=== PATIENT | female | born 1945 | race Caucasian/White ===

== ENCOUNTER 2021-03-10 12:45 | Emergency (ER) | payer MEDICARE, OTHER ==
--- NOTE | 2021-03-10 13:04 | ED Cough/URI ---
General Stated Complaint: COVID+; LETHARGY; LOW O2 History of Present Illness Date Seen by Provider: Mar 10, 2021 Time Seen by Provider: 12:59 Initial Comments 75-year-old female presents with generalized malaise, some nausea vomiting not feeling well. Patient reports that she started feeling rough with some body aches on 02/28/2021. That she has gotten worse. Patient was seen by her primary care provider today and tested positive for Covid. Patient presents because she thinks she needs some IV fluids. She complains of some mild shortness of breath with concerns of low oxygen. Patient has chills but no reports of fevers. She took a Zofran around 9 AM this morning and and ibuprofen around 1030. Allergies and Home Medications Allergies Coded Allergies: No Known Drug Allergies (Unverified , 03/10/21) Patient Home Medication List Home Medication List Reviewed: Yes Review of Systems Review of Systems Constitutional: chills, malaise Respiratory: cough, short of breath Cardiovascular: No chest pain Gastrointestinal: No abdominal pain; nausea, vomiting Genitourinary: no symptoms reported Musculoskeletal: see HPI Skin: no symptoms reported Psychiatric/Neurological: No Symptoms Reported Hematologic/Lymphatic: No Symptoms Reported Physical Exam Capillary Refill : Height: '" Weight: lbs. oz. kg; BMI Method: General Appearance: mild distress Respiratory: no respiratory distress, no accessory muscle use Cardiovascular: normal peripheral pulses, regular rate, rhythm Gastrointestinal: non tender, soft Extremities: normal range of motion Neurologic/Psychiatric: alert, normal mood/affect, oriented x 3 Skin: normal color, warm/dry Progress/Results/Core Measures Suspected Sepsis SIRS Temperature: Pulse: Respiratory Rate: Laboratory Tests 03/10/21 13:20: White Blood Count 9.9 Blood Pressure / Mean: Laboratory Tests 03/10/21 13:20: Creatinine 0.86, Platelet Count 301, Total Bilirubin 0.3 Results/Orders Lab Results Laboratory Tests Test 03/10/21 13:20 Range/Units White Blood Count 9.9 4.3-11.0 10^3/uL Red Blood Count 4.50 3.80-5.11 10^6/uL Hemoglobin 12.6 11.5-16.0 g/dL Hematocrit 39 35-52 % Mean Corpuscular Volume 86 80-99 fL Mean Corpuscular Hemoglobin 28 25-34 pg Mean Corpuscular Hemoglobin Concent 33 32-36 g/dL Red Cell Distribution Width 13.6 10.0-14.5 % Platelet Count 301 130-400 10^3/uL Mean Platelet Volume 10.3 9.0-12.2 fL Immature Granulocyte % (Auto) 1 % Neutrophils (%) (Auto) 84 H 42-75 % Lymphocytes (%) (Auto) 10 L 12-44 % Monocytes (%) (Auto) 5 0-12 % Eosinophils (%) (Auto) 0 0-10 % Basophils (%) (Auto) 0 0-10 % Neutrophils # (Auto) 8.3 H 1.8-7.8 X 10^3 Lymphocytes # (Auto) 0.9 L 1.0-4.0 X 10^3 Monocytes # (Auto) 0.5 0.0-1.0 X 10^3 Eosinophils # (Auto) 0.0 0.0-0.3 10^3/uL Basophils # (Auto) 0.0 0.0-0.1 10^3/uL Immature Granulocyte # (Auto) 0.1 0.0-0.1 10^3/uL Neutrophils % (Manual) 73 % Lymphocytes % (Manual) 7 % Monocytes % (Manual) 4 % Eosinophils % (Manual) 0 % Basophils % (Manual) 0 % Metamyelocytes % 1 % Band Neutrophils 15 % Sodium Level 137 135-145 MMOL/L Potassium Level 3.6 3.6-5.0 MMOL/L Chloride Level 103 98-107 MMOL/L Carbon Dioxide Level 20 L 21-32 MMOL/L Anion Gap 14 5-14 MMOL/L Blood Urea Nitrogen 8 7-18 MG/DL Creatinine 0.86 0.60-1.30 MG/DL Estimat Glomerular Filtration Rate 65 BUN/Creatinine Ratio 9 Glucose Level 116 H 70-105 MG/DL Calcium Level 8.2 L 8.5-10.1 MG/DL Corrected Calcium 8.8 8.5-10.1 MG/DL Total Bilirubin 0.3 0.1-1.0 MG/DL Aspartate Amino Transf (AST/SGOT) 57 H 5-34 U/L Alanine Aminotransferase (ALT/SGPT) 21 0-55 U/L Alkaline Phosphatase 83 40-136 U/L Total Protein 7.1 6.4-8.2 GM/DL Albumin 3.3 3.2-4.5 GM/DL My Orders Orders - DOS SANTOS,CORRY L DO Cbc With Automated Diff (03/10/21 13:07) Comprehensive Metabolic Panel (03/10/21 13:07) Ua Culture If Indicated (03/10/21 13:07) Chest 1 View Ap/Pa Only (03/10/21 13:07) Acetaminophen Tablet (Tylenol Tablet) (03/10/21 13:07) Ondansetron Injection (Zofran Injectio (03/10/21 13:15) Famotidine Tablet (Pepcid Tablet) (03/10/21 13:07) Ns Iv 1000 Ml (Sodium Chloride 0.9%) (03/10/21 13:07) Manual Differential (03/10/21 13:20) Ct Angio Chest W (03/10/21 14:10) Iohexol Injection (Omnipaque 350 Mg/Ml 1 (03/10/21 14:15) Received Contrast (Hold Metformin- Contr (03/10/21 14:15) Sodium Chloride Flush (Catheter Flush Sy (03/10/21 14:15) Ns (Ivpb) (Sodium Chloride 0.9% Ivpb Bag (03/10/21 14:15) Medications Given in ED Current Medications Medications Dose Ordered Sig/Sahra Route Start Time Stop Time Status Last Admin Dose Admin Iohexol 100 ml ONCE ONCE IV 03/10/21 14:15 03/10/21 14:16 DC 03/10/21 14:48 100 ML Ondansetron HCl 4 mg ONCE ONCE IVP 03/10/21 13:15 03/10/21 13:16 DC 03/10/21 13:24 4 MG Sodium Chloride 10 ml NEEDED PRN IV 03/10/21 14:15 03/10/21 14:48 10 ML Sodium Chloride 100 ml ONCE ONCE IV 03/10/21 14:15 03/10/21 14:16 DC 03/10/21 14:48 100 ML Vital Signs/I&O Capillary Refill : Progress Note : Progress Note Patient's O2 saturations remained in the upper 90s throughout her stay. Patient with Covid pneumonia on x-ray and CT. At this time patient reports that she is ready to go home and that she is going to go ahead and just leave if we do not discharge her. Patient will be discharged since labs and vitals are stable. She should follow-up with her primary care provider as needed Diagnostic Imaging Diagonstic Imaging: Xray Plain Films/CT/US/NM/MRI: chest Comments Date of Exam:03/10/21 CHEST 1 VIEW AP/PA ONLY INDICATION: Cough and COVID infection. TECHNIQUE: Portable AP upright view of the chest is obtained. COMPARISON: There is no previous study for comparison. FINDINGS: Predominantly wedge-shaped airspace disease is seen in the periphery of both lungs. This is more pronounced on the left. No pneumothorax or definite pleural fluid is seen. Heart size is within normal limits. IMPRESSION: Peripheral airspace disease may represent infiltrate such as bilateral pneumonia. Given morphology, other considerations such as infarct are not excluded. Departure Impression Primary Impression: Pneumonia due to COVID-19 virus Disposition: 01 HOME, SELF-CARE Condition: Stable Departure-Patient Inst. Referrals: JORDAN DIXON MD (PCP/Family) Primary Care Physician Patient Instructions: COVID-19 ED, Recovery After COVID-19 Add. Discharge Instructions: Follow-up with your primary care provider as needed CORRY DOS SANTOS DO Mar 10, 2021 13:04
[2021-03-10] MEDS ORDERED: FAMOTIDINE 20 MG (PEPCID) TABLET PO STA (13:07)
[2021-03-10] MEDS ORDERED: ACETAMINOPHEN 500 MG TAB (TYLENOL) PO STA (13:07)
[2021-03-10] MEDS ORDERED: NS IV 1000 ML 1,000 ML IV STA (13:07)
[2021-03-10] MEDS ORDERED: ONDANSETRON 4 MG/2 ML (SDV) Z0FRAN IVP ONE (13:15)
--- NOTE | 2021-03-10 13:35 | Diagnostic Imaging Report ---
INDICATION: Cough and COVID infection. TECHNIQUE: Portable AP upright view of the chest is obtained. COMPARISON: There is no previous study for comparison. FINDINGS: Predominantly wedge-shaped airspace disease is seen in the periphery of both lungs. This is more pronounced on the left. No pneumothorax or definite pleural fluid is seen. Heart size is within normal limits. IMPRESSION: Peripheral airspace disease may represent infiltrate such as bilateral pneumonia. Given morphology, other considerations such as infarct are not excluded. Dictated by: Dictated on workstation # [id number]
[2021-03-10 13:37] LABS: BASOPHILS % (AUTO) 0 % (0-10); EOSINOPHILS % (AUTO) 0 % (0-10); HEMATOCRIT 39 % (35-52); HEMOGLOBIN 12.6 g/dL (11.5-16.0); LYMPHOCYTES % (AUTO) 10 % (12-44); MEAN CORPUSCULAR HEMOGLOBIN 28 pg (25-34); MEAN CORPUSCULAR HGB CONC 33 g/dL (32-36); MEAN CORPUSCULAR VOLUME 86 fL (80-99); MEAN PLATELET VOLUME 10.3 fL (9.0-12.2); MONOCYTES % (AUTO) 5 % (0-12); NEUTROPHILS % (AUTO) 84 % (42-75); PLATELET COUNT 301 10^3/uL (130-400); WHITE BLOOD COUNT 9.9 10^3/uL (4.3-11.0)
[2021-03-10 13:38] LABS: LYMPHOCYTES # (AUTO) 0.9 X 10^3 (1.0-4.0); MONOCYTES # (AUTO) 0.5 X 10^3 (0.0-1.0); NEUTROPHILS # (AUTO) 8.3 X 10^3 (1.8-7.8)
[2021-03-10 14:02] LABS: ALBUMIN 3.3 GM/DL (3.2-4.5); BILIRUBIN,TOTAL 0.3 MG/DL (0.1-1.0); CALCIUM 8.2 MG/DL (8.5-10.1); CREATININE SERUM 0.86 MG/DL (0.60-1.30); POTASSIUM 3.6 MMOL/L (3.6-5.0); TOTAL PROTEIN 7.1 GM/DL (6.4-8.2)
[2021-03-10 14:03] LABS: BAND NEUTROPHILS 15 %; LYMPHOCYTES % (MANUAL) 7 %; NEUTROPHILS % (MANUAL) 73 %
[2021-03-10 14:04] LABS: BASOPHILS % (MANUAL) 0 %; EOSINOPHILS % (MANUAL) 0 %; METAMYELOCYTES % 1 %; MONOCYTES % (MANUAL) 4 %
[2021-03-10] MEDS ORDERED: CATHETER FLUSH 10 ML SYR IV PRN (14:15)
[2021-03-10] MEDS ORDERED: HOLD METFORMIN - RECEIVED CONTRAST 20 ML VIAL IV SCH (14:15)
[2021-03-10] MEDS ORDERED: NS 100 ML (IVPB) BAG IV ONE (14:15)
[2021-03-10] MEDS ORDERED: IOHEXOL 350 MG/ML 100 ML (OMNIPAQUE 350) VIAL IV ONE (14:15)
--- NOTE | 2021-03-10 14:58 | Diagnostic Imaging Report ---
PROCEDURE: CT angiography Chest TECHNIQUE: After intravenous administration of contrast, thin section axial CT angiography of the chest was performed. 3D MIP reconstructions were made. All CT scans use one or more of the following dose optimizing techniques: automated exposure control, MA and/or KvP adjustment based on a patient size and exam type, or iterative reconstruction. INDICATION: Shortness of breath. Covid positive. COMPARISON: Chest radiograph from earlier same day FINDINGS: Vasculature: No pulmonary emboli. No CT evidence of pulmonary hypertension or right ventricular strain. Thoracic aorta is normal in caliber. No aortic dissection or pseudoaneurysm. Heart and mediastinum: Visualized thyroid is normal. No supraclavicular, axillary, or intra-thoracic lymphadenopathy. The heart is normal in size without pericardial effusion. Pleura: No pleural effusion or pneumothorax. Lungs and airway: No endoluminal lesion in the trachea or central bronchi. Bilateral mixed groundglass and consolidations have an appearance that is typical for Covid 19. Upper abdomen: Allowing for the phase of contrast, no acute abnormality in the upper abdomen is seen. Musculoskeletal: No concerning osseous lesion. IMPRESSION: 1. No pulmonary emboli or acute aortic syndrome. 2. Multifocal pulmonary groundglass and consolidations are typical for Covid 19. Dictated by: Dictated on workstation # [id number]
[2021-03-10 15:32] VITALS: BP 103/42
[2021-03-10 15:51] LABS: CLARITY,URINE CLEAR; COLOR,URINE YELLOW
[2021-03-10 15:52] LABS: BACTERIA,URINE NEGATIVE /HPF; BILIRUBIN,URINE NEGATIVE (NEGATIVE); GLUCOSE, URINE (UA) NEGATIVE (NEGATIVE); KETONES,URINE TRACE (NEGATIVE); LEUKOCYTE ESTERASE ,URINE TRACE (NEGATIVE); NITRITE,URINE NEGATIVE (NEGATIVE); PH,URINE 6.5 (5-9); PROTEIN,URINE NEGATIVE (NEGATIVE); RBC,URINE 0-2 /HPF; YEAST,URINE FEW /HPF
== END 2021-03-10 15:32 | disposition home or self-care (01) ==
LOC: ER FS 12:50
DX: U07.1 COVID-19 (principal); J12.82 Pneumonia due to coronavirus disease 2019
CPT/HCPCS: 36415; 71045; 71275; 80053; 81000; 85007; 85027; 87088

== ENCOUNTER → 2021-05-09 | Outpatient (CLI) | payer MEDICARE ==
[2021-05-09 13:26] LABS: HEMATOCRIT 39 % (35-52); HEMOGLOBIN 13.1 g/dL (11.5-16.0); MEAN CORPUSCULAR HEMOGLOBIN 28 pg (25-34); MEAN CORPUSCULAR HGB CONC 33 g/dL (32-36); MEAN CORPUSCULAR VOLUME 84 fL (80-99); MEAN PLATELET VOLUME 11.6 fL (9.0-12.2); PLATELET COUNT 308 10^3/uL (130-400); WHITE BLOOD COUNT 6.3 10^3/uL (4.3-11.0)
[2021-05-09 15:19] LABS: ERYTHROCYTE SEDIMENTATION RATE 17 MM/HR (0-30)
[2021-05-09 15:28] LABS: CARBON DIOXIDE 22 MMOL/L (21-32); CHLORIDE 106 MMOL/L (98-107); POTASSIUM 3.9 MMOL/L (3.6-5.0); SODIUM 141 MMOL/L (135-145)
[2021-05-09 15:29] LABS: ALANINE AMINOTRANSFERASE 9 U/L (0-55); ALBUMIN 4.2 GM/DL (3.2-4.5); ALKALINE PHOSPHATASE 75 U/L (40-136); BILIRUBIN,TOTAL 0.4 MG/DL (0.1-1.0); BUN/CREATININE RATIO 15; CALCIUM 8.9 MG/DL (8.5-10.1); CREATININE SERUM 0.91 MG/DL (0.60-1.30); GFR ESTIMATED 67; GLUCOSE 92 MG/DL (70-105); TOTAL PROTEIN 6.7 GM/DL (6.4-8.2)
[2021-05-09 15:53] LABS: CREATINE KINASE MB 1.2 NG/ML (<6.6)
== END ==
LOC: LAB FS 12:21
PROVIDERS: ATTEND Emergency Medicine
DX: Z00.01 Encounter for general adult medical examination with abnormal findings (principal); R53.83 Other fatigue; R00.8 Other abnormalities of heart beat; R06.02 Shortness of breath; Z86.16 Personal history of COVID-19
CPT/HCPCS: 36415; 80053; 82553; 84443; 84484; 85027; 85379; 85652; 86141

== ENCOUNTER → 2021-05-09 | Outpatient (CLI) | payer MEDICARE ==
--- NOTE | 2021-05-09 12:47 | Diagnostic Imaging Report ---
INDICATION: SOB, ABORMAL HEART BEAT, HX OF COVID-19 COMPARISON: 03/10/2021 FINDINGS: Frontal and lateral views of the chest demonstrate normal heart size and pulmonary vascularity. The lungs are clear. There are no signs of infiltrate, pleural effusions or pneumothoraces. The visualized osseous structures show no acute abnormalities. IMPRESSION: 1. No acute process. No signs of infiltrates, effusions or pneumothoraces. Dictated by: Dictated on workstation # [id number]
== END ==
LOC: RAD FS 12:15
PROVIDERS: ATTEND Nurse Practitioner Family
DX: R00.8 Other abnormalities of heart beat (principal); R06.02 Shortness of breath; Z86.16 Personal history of COVID-19
CPT/HCPCS: 71046